=== PATIENT | male | born 1940 | race Caucasian/White ===

== ENCOUNTER 2018-11-15 10:44 | Emergency (ER) | payer MEDICARE, BC, MEDICAID ==
[2018-11-15 11:00] VITALS: BP 130/65
[2018-11-15] MEDS ORDERED: Lidocaine 2% Jelly 10 ML Urojet MUCMEM ONE (11:01)
--- NOTE | 2018-11-15 11:22 | EDM.PDOC ---
ED HPI GENERAL MEDICAL PROBLEM - General Chief Complaint: Genitourinary Problem Stated Complaint: [facility] Time Seen by Provider: 11/15/18 11:02 Source of Information: Reports: Patient History Limitations: Reports: No Limitations - History of Present Illness INITIAL COMMENTS - FREE TEXT/NARRATIVE: 78 year old male arrives via [facility] for evaluation and treatment of urinary retention and hematuria. Lives at the [facility]. Recently diagnosed with a UTI, prescribed Bactrim DS. Has had 2 doses thus far. UA done at alf, urine culture pending. Per alf records more confused and weak than normal. No fevers , vomiting or diarrhea per their report. Patient has an order to be catheterized every 8 hours. Reportedly latest catheterization was unsuccessful and has been having blood clots in urine. Patient is confused but is denying and pain at this time. Patient is reported as being a DNR, DNI. Comfort cares only, no admission. Treatments SECURITY ASSURANCE SPECIALIST: Reports: Other (see below) Other Treatments SECURITY ASSURANCE SPECIALIST: straight cath - Related Data Allergies Allergy/AdvReac Type Severity Reaction Status Date / Time No Known Allergies Allergy Verified 04/27/15 15:43 Home Meds: Home Meds Carvedilol 12.5 mg PO BID 04/27/15 [History] Clopidogrel [Plavix] 75 mg PO DAILY #21 tablet 04/27/15 [Rx] atorvaSTATin [Lipitor] 40 mg PO DAILY 04/27/15 [History] Acetaminophen [Tylenol] 650 mg PO Q4H PRN 11/15/18 [History] Losartan [Cozaar] 50 mg PO BEDTIME 11/15/18 [History] Sertraline [Zoloft] 1 tab PO DAILY 11/15/18 [History] Sulfamethoxazole/Trimethoprim [Bactrim Ds Tablet] 1 tab PO BID 11/15/18 [History ] Past Medical History - Past Surgical History Other Cardiovascular Surgeries/Procedures: cardiac bypass 2014 ED ROS GENERAL - Review of Systems Review Of Systems: See Below Constitutional: Denies: Fever GI/Abdominal: Denies: Abdominal Pain, Diarrhea, Vomiting : Reports: Hematuria, Urinary Retention Psychiatric: Denies: Confusion ED EXAM, RENAL/ - Physical Exam Exam: See Below Exam Limited By: No Limitations General Appearance: Alert, WD/WN, No Apparent Distress, Thin Throat/Mouth: Normal Inspection, Other (dry mucus membranes) Respiratory/Chest: No Respiratory Distress, Lungs Clear, Normal Breath Sounds Cardiovascular: Normal Peripheral Pulses, Regular Rate, Rhythm, No Murmur GI/Abdominal: Normal Bowel Sounds, Soft, Non-Tender (Male) Exam: Other (3 way urinary cathater placed by nursing staff. Small amount of blood present in urine but no significant hematura or clots present. ) Neurological: Alert, Oriented, Normal Cognition Psychiatric: Normal Affect, Normal Mood Skin Exam: Warm, Dry, Normal Color Course - Vital Signs Last Recorded V/S: Last Vital Signs Temp 98 F 11/15/18 10:50 Pulse 77 11/15/18 10:50 Resp 18 11/15/18 10:50 BP 130/65 11/15/18 10:50 Pulse Ox 91 L 11/15/18 10:50 - Orders/Labs/Meds Labs: Laboratory Tests 11/15/18 11/15/18 11/15/18 Range/Units 11:51 11:51 11:51 WBC 11.94 H (4.23-9.07) K/mm3 RBC 6.04 (4.63-6.08) M/mm3 Hgb 16.6 (13.7-17.5) gm/L Hct 52.6 H (40.1-51.0) % MCV 87.1 (79.0-92.2) fl MCH 27.5 (25.7-32.2) pg MCHC 31.6 L (32.2-35.5) g/dl RDW Std Deviation 44.0 H (35.1-43.9) fL Plt Count 166 (163-337) K/mm3 MPV 10.0 (9.4-12.3) fl Neutrophils % (Manual) 69 H (40-60) % Band Neutrophils % 0 (0-10) % Lymphocytes % (Manual) 11 L (20-40) % Atypical Lymphs % 0 % Monocytes % (Manual) 18 H (2-10) % Eosinophils % (Manual) 2 (0.8-7.0) % Basophils % (Manual) 0 L (0.2-1.2) Platelet Estimate Adequate Plt Morphology Comment Normal RBC Morph Comment Normal Sodium 159 H (136-145) mEq/L Potassium 3.8 (3.5-5.1) mEq/L Chloride 122 H (98-107) mEq/L Carbon Dioxide 30 (21-32) mEq/L Anion Gap 10.8 (5-15) BUN 61 H (7-18) mg/dL Creatinine 2.1 H (0.7-1.3) mg/dL Est Cr Clr Drug Dosing TNP Estimated GFR (MDRD) 31 (>60) mL/min BUN/Creatinine Ratio 29.0 H (14-18) Glucose 109 (83-115) mg/dL Lactic Acid 1.4 (0.4-2.0) mmol/L Calcium 9.5 (8.5-10.1) mg/dL Total Bilirubin 0.6 (0.2-1.0) mg/dL AST 45 H (15-37) U/L ALT 63 (16-63) U/L Alkaline Phosphatase 67 (46-116) U/L C-Reactive Protein 3.9 H* (<1.0) mg/dL Total Protein 6.5 (6.4-8.2) g/dl Albumin 3.0 L (3.4-5.0) g/dl Globulin 3.5 gm/dL Albumin/Globulin Ratio 0.9 L (1-2) Meds: Medications Discontinued Medications Generic Name Dose Route Start Last Admin Trade Name Freq PRN Reason Stop Dose Admin Ceftriaxone Sodium Confirm 11/15/18 11:55 11/15/18 12:14 Rocephin Administered 11/15/18 11:56 Not Given Dose 2 gm IV .STK-MED ONE Ceftriaxone Sodium 2 gm/ 100 mls @ 200 mls/hr 11/15/18 11:24 11/15/18 12:13 Sodium Chloride IV 11/15/18 11:53 200 mls/hr NOW STA Administration Sodium Chloride 500 mls @ 999 mls/hr 11/15/18 11:41 11/15/18 12:14 Normal Saline IV 11/15/18 12:11 999 mls/hr ONETIME ONE Administration Sodium Chloride 500 mls @ 999 mls/hr 11/15/18 13:17 11/15/18 13:20 Normal Saline IV 11/15/18 13:47 Not Given ONETIME ONE Lidocaine HCl 10 ml 11/15/18 11:01 11/15/18 12:14 Xylocaine 2% Jelly MUCMEM 11/15/18 11:02 10 ml ONETIME ONE Administration Sodium Chloride 10 ml 11/15/18 11:24 11/15/18 12:14 Saline Flush FLUSH 10 ml ASDIRECTED PRN Administration Keep Vein Open - Re-Assessments/Exams Free Text/Narrative Re-Assessment/Exam: 11/15/18 13:22 Rocephin given. Patient given fluids. Will discharge back to the alf. Patient is a DNR, DNI comfort cares only. Continue on antibiotics as prescribed by PCP unless otherwise directed. Discharge instructions as documented. Departure - Departure Time of Disposition: 13:28 Disposition: Home, Self-Care 01 Condition: Fair Clinical Impression: UTI, Urinary tract infectious disease, Dehydration - Discharge Information *PRESCRIPTION DRUG MONITORING PROGRAM REVIEWED*: No *COPY OF PRESCRIPTION DRUG MONITORING REPORT IN PATIENT ELMA: No Instructions: Urinary Tract Infection, Adult, [id number], Acute Urinary Retention, Male Referrals: Jose Hayward MD [Primary Care Provider] - Forms: ED Department Discharge Additional Instructions: Follow-up with Dr. Hayward Monday for catheter removal. Continue on the Bactrim as prescribed unless changed by Dr. Hayward per urine culture results. Encourage water. Please return to the ER should your symptoms change or worsen.
[2018-11-15] MEDS ORDERED: cefTRIAXone 2 GM in Sodium Chloride 0.9% 100 ML IV STA (11:24)
[2018-11-15] MEDS ORDERED: Sodium Chloride 0.9% 10 ML Syringe FLUSH PRN (11:24)
[2018-11-15] MEDS ORDERED: Sodium Chloride 0.9% 500 ML IV ONE ×2 (11:41→13:17)
[2018-11-15] MEDS ORDERED: cefTRIAXone 2 GM AdvVial IV ONE (11:55)
== END 2018-11-15 13:30 | disposition home or self-care (01) ==
LOC: JD.ED 10:44
DX: N39.0 Urinary tract infection, site not specified (principal); E86.0 Dehydration; Z79.899 Other long term (current) drug therapy
CPT/HCPCS: 36415; 51702; 80053; 83605; 85007; 85027; 86140; 87040; 96361; 96365; 99285; J0696; J7030; J7040; 99283